=== PATIENT | female | born 1955 | race Two or more races ===

== ENCOUNTER 2018-05-17 11:42 | Emergency (ER) | payer SELFPAY ==
[~2018-05-17] VITALS: Ht 167.6 cm; Wt 59.4 kg
[2018-05-17] MEDS ORDERED: fentaNYL PF VIAL 100 MCG/2 ML VIAL IV ONE ×2 (12:00→15:30)
[2018-05-17] MEDS ORDERED: ONDANSETRON PF 4 MG/2 ML VIAL. IV ONE (12:00)
[2018-05-17] MEDS ORDERED: IV NORMAL SALINE 1000ML BAG 1,000 ML IV ONE (12:00)
[2018-05-17 12:24] LABS: BASO % 1 % (0-3); EOS # 0.2 x10^3/uL (0.0-0.7); EOS % 3 % (0-3); HEMATOCRIT 37.5 % (36.0-47.0); HEMOGLOBIN 12.7 g/dL (12.0-15.5); LYMPH # 1.4 x10^3/uL (1.0-4.8); LYMPH % 22 % (24-48); MEAN CORPUSCULAR HEMOGLOBIN 29 pg (25-35); MEAN CORPUSCULAR HGB CONC 34 g/dL (31-37); MEAN CORPUSCULAR VOLUME 85 fL (79-100); MONO # 0.2 x10^3/uL (0.0-1.1); MONO % 4 % (0-9); NEUT # 4.3 x10^3uL (1.8-7.7); NEUT % 70 % (31-73); PLATELET COUNT 296 x10^3/uL (140-400); RED BLOOD COUNT 4.39 x10^6/uL (3.50-5.40); RED CELL DISTRIBUTION WIDTH 13.4 % (11.5-14.5); WHITE BLOOD COUNT 6.1 x10^3/uL (4.0-11.0)
[2018-05-17 12:25] LABS: BILIRUBIN,URINE NEGATIVE (NEG); CLARITY,URINE CLEAR; COLOR,URINE YELLOW; NITRITE,URINE NEGATIVE (NEG); PROTEIN,URINE NEGATIVE (NEG-TRACE); UROBILINOGEN,URINE 0.2 mg/dL (0.2 mg/dL)
--- NOTE | 2018-05-17 12:40 | PHYS DOC ---
Past Medical History Past Medical History: No Pertinent History Past Surgical History: No Surgical History, Hysterectomy Alcohol Use: None Drug Use: None Adult General Chief Complaint Chief Complaint: FLANK PAIN HPI HPI Patient is a 62 year old F who presents with right sided back pain that radiates to right sided abdominal pain. Onset last night. She reports feeling chilled, but no fever. No n/v. She states she has urgency, but no dysuria. No hx of pain like this in the past. She reported to RN that she has been constipated as well. Review of Systems Review of Systems Constitutional: Denies fever or chills [] Respiratory: Denies cough or shortness of breath [] Cardiovascular: No additional information not addressed in HPI [] GI: Reports abdominal pain. Denies nausea, vomiting, or diarrhea [] : Reports urgency. Denies dysuria or hematuria [] Musculoskeletal: Reports right sided back pain Neurologic: Denies headache, focal weakness or sensory changes [] All other systems were reviewed and found to be within normal limits, except as documented in this note. Current Medications Current Medications Current Medications Medications (Trade) Dose Ordered Sig/Paulie Start Time Stop Time Status Last Admin Dose Admin Ceftriaxone Sodium 50 ml @ 100 mls/hr 1X ONCE 05/17/18 13:45 05/17/18 14:14 DC 05/17/18 13:38 100 MLS/HR Fentanyl Citrate (Fentanyl 2ml Vial) 50 mcg 1X ONCE 05/17/18 12:00 05/17/18 12:21 DC 05/17/18 12:23 50 MCG Ketorolac Tromethamine (Toradol 15mg Vial) 15 mg 1X ONCE 05/17/18 13:00 05/17/18 13:01 DC 05/17/18 13:03 15 MG Ondansetron HCl (Zofran) 4 mg 1X ONCE 05/17/18 12:00 05/17/18 12:21 DC 05/17/18 12:22 4 MG Sodium Chloride 1,000 ml @ 1,000 mls/hr 1X ONCE 05/17/18 12:00 05/17/18 12:59 DC 05/17/18 12:21 1,000 MLS/HR Allergies Allergies Allergies Coded Allergies Type Severity Reaction Last Updated Verified No Known Drug Allergies 05/17/18 No Physical Exam Physical Exam Constitutional: Well developed, well nourished, no acute distress, non-toxic appearance. [] HENT: Normocephalic, atraumatic Eyes: PERRLA, EOMI, conjunctiva normal, no discharge. [] Neck: Normal range of motion, no tenderness, supple, no stridor. [] Cardiovascular:Heart rate regular rhythm, no murmur [] Lungs & Thorax: Bilateral breath sounds clear to auscultation [] Abdomen: Bowel sounds normal, soft, right sided Skin: Warm, dry, no erythema, no rash. [] Extremities: No tenderness, ROM intact Neurologic: Alert and oriented X 3, normal motor function, normal sensory function, no focal deficits noted. [] Psychologic: Affect normal, judgement normal, mood normal. [] Current Patient Data Vital Signs Vital Signs Date Time Temp Pulse Resp B/P (MAP) Pulse Ox O2 Delivery O2 Flow Rate FiO2 05/17/18 13:53 72 16 130/70 (90) 100 Room Air 05/17/18 13:14 2.0 05/17/18 11:47 97.7 97.7 Lab Values Laboratory Tests Test 05/17/18 12:10 White Blood Count 6.1 x10^3/uL (4.0-11.0) Red Blood Count 4.39 x10^6/uL (3.50-5.40) Hemoglobin 12.7 g/dL (12.0-15.5) Hematocrit 37.5 % (36.0-47.0) Mean Corpuscular Volume 85 fL (79-100) Mean Corpuscular Hemoglobin 29 pg (25-35) Mean Corpuscular Hemoglobin Concent 34 g/dL (31-37) Red Cell Distribution Width 13.4 % (11.5-14.5) Platelet Count 296 x10^3/uL (140-400) Neutrophils (%) (Auto) 70 % (31-73) Lymphocytes (%) (Auto) 22 % (24-48) L Monocytes (%) (Auto) 4 % (0-9) Eosinophils (%) (Auto) 3 % (0-3) Basophils (%) (Auto) 1 % (0-3) Neutrophils # (Auto) 4.3 x10^3uL (1.8-7.7) Lymphocytes # (Auto) 1.4 x10^3/uL (1.0-4.8) Monocytes # (Auto) 0.2 x10^3/uL (0.0-1.1) Eosinophils # (Auto) 0.2 x10^3/uL (0.0-0.7) Basophils # (Auto) 0.0 x10^3/uL (0.0-0.2) Urine Collection Type Unknown Urine Color Yellow Urine Clarity Clear Urine pH 7.0 Urine Specific Gorman 1.010 Urine Protein Negative mg/dL (NEG-TRACE) Urine Glucose (UA) Negative mg/dL (NEG) Urine Ketones (Stick) Negative mg/dL (NEG) Urine Blood Small (NEG) Urine Nitrite Negative (NEG) Urine Bilirubin Negative (NEG) Urine Urobilinogen Dipstick 0.2 mg/dL (0.2 mg/dL) Urine Leukocyte Esterase Trace (NEG) Urine RBC Rare /HPF (0-2) Urine WBC Occ /HPF (0-4) Urine Squamous Epithelial Cells Few /LPF Urine Bacteria Few /HPF (0-FEW) Sodium Level 141 mmol/L (136-145) Potassium Level 3.8 mmol/L (3.5-5.1) Chloride Level 102 mmol/L (98-107) Carbon Dioxide Level 28 mmol/L (21-32) Anion Gap 11 (6-14) Blood Urea Nitrogen 11 mg/dL (7-20) Creatinine 0.8 mg/dL (0.6-1.0) Estimated GFR (Cockcroft-Gault) 73.2 BUN/Creatinine Ratio 14 (6-20) Glucose Level 125 mg/dL (70-99) H Calcium Level 9.2 mg/dL (8.5-10.1) Total Bilirubin 0.3 mg/dL (0.2-1.0) Aspartate Amino Transferase (AST) 31 U/L (15-37) Alanine Aminotransferase (ALT) 39 U/L (14-59) Alkaline Phosphatase 124 U/L (46-116) H Total Protein 8.4 g/dL (6.4-8.2) H Albumin 3.7 g/dL (3.4-5.0) Albumin/Globulin Ratio 0.8 (1.0-1.7) L Laboratory Tests 05/17/18 12:10 Laboratory Tests 05/17/18 12:10 EKG EKG [] Radiology/Procedures Radiology/Procedures PATIENT: RAMOS PRIETORAACCOUNT: [id number]#: [id number] : 1955 LOCATION: ER AGE: 62 SEX: F EXAM STATUS: REG ER ORD. PHYSICIAN: VIC BENOIT APRN REASON: right flank and abdominal pain PROCEDURE: CT ABDOMEN PELVIS WO CONTRAST EXAM: CT Abdomen and Pelvis without IV contrast CLINICAL HISTORY: R FLANK PAIN CONSTIPATION NO CONTRAST NO PREV SX: HYSTERECTOMY COMPARISON: none TECHNIQUE: Helical CT of the abdomen and pelvis without intravenous contrast. Axial, coronal and sagittal reformatted images were generated. PQRS compliance statement - One or more of the following individualized dose reduction techniques were utilized for this study: 1. Automated exposure control 2. Adjustment of the mA and/or kV according to patient size 3. Use of iterative reconstruction technique FINDINGS: Lack of intravenous contrast limits evaluation of solid organs, vasculature, and lymph nodes. Lower chest: Platelike opacities in the lung bases likely atelectasis/scarring. Right lower lobe calcified granulomas noted. Abdomen and Pelvis: No focal liver lesion. Gallbladder is unremarkable. No biliary ductal dilatation. Spleen is unremarkable. Adrenal glands and pancreas are unremarkable. Left lower pole cortical thinning/scarring is seen. Hypodense left lower pole renal lesion is not well characterized by CT, measures soft tissue density, 1.5 cm. A right lower pole renal cystic lesion measures 1.2 cm. No hydronephrosis or hydroureter. No renal tract calculi. Moderate colonic stool content is seen. Appendix is normal. No abnormal small or large bowel dilatation is seen. No evidence of bowel obstruction. Bladder is unremarkable. No definite pelvic mass is identified. Bones: Multilevel degenerative changes of the spine are seen. IMPRESSION: 1. Moderate colonic stool content. No evidence of bowel obstruction. 2. Hypodense left lower pole renal lesion is too small to characterize. This can be characterized by nonemergent ultrasound to assess for solid versus cystic lesion. 3. No renal tract calculi. Electronically signed by: Kristian Carter MD (05/17/2018 2:37 PM) [facility] DICTATED and SIGNED BY: KRISTIAN CARTER MD DATE: 05/17/18 1424 PATIENT: NII PRIETOACCOUNT: [id number]#: [id number] : 1955 LOCATION: ER AGE: 62 SEX: F EXAM STATUS: REG ER ORD. PHYSICIAN: VIC BENOIT APRN REASON: constipation, right abdominal pain PROCEDURE: KUB EXAM: Supine AP view of the abdomen DATE: 05/17/2018 12:30 PM INDICATION: CONSTIPATION, RIGHT SIDED ABDOMINAL PAIN COMPARISON: No Prior FINDINGS: No abnormal small or large bowel dilatation. Moderate colonic stool content. No abnormal soft tissue mass effect. No suspicious calcifications are seen. Evaluation for free intraperitoneal gas is limited on this supine exam. IMPRESSION: 1. No evidence for bowel obstruction. Electronically signed by: Kristian Carter MD (05/17/2018 12:47 PM) [facility] DICTATED and SIGNED BY: KRISTIAN CARTER MD DATE: 05/17/18 1246 [] Course & Med Decision Making Course & Med Decision Making Pertinent Labs and Imaging studies reviewed. (See chart for details) Plan: keflex rx, tramadol rx, mag citrate rx, f/u with PCP, return precautions reviewed Dragon Disclaimer Dragon Disclaimer This electronic medical record was generated, in whole or in part, using a voice recognition dictation system. Departure Departure Impression: Primary Impression: UTI (urinary tract infection) Additional Impressions: Constipation Abdominal pain Disposition: 01 HOME, SELF-CARE Condition: IMPROVED Patient Instructions: Constipation, Adult, Urinary Tract Infection Additional Instructions: Mix 4oz of magnesium citrate with 4oz of any beverage and drink every hour until results. Scripts Magnesium Citrate (MAGNESIUM CITRATE) 296 Ml Solution 296 ML PO ONCE, #296 ML Prov: VIC BENOIT APRN 05/17/18 Tramadol Hcl (TRAMADOL HCL) 50 Mg Tablet 50 MG PO Q6HRS PRN for PAIN, #20 TAB Prov: VIC BENOIT APRN 05/17/18 Cephalexin (CEPHALEXIN) 500 Mg Tablet 1 TAB PO TID, #15 TAB Prov: VIC BENOIT APRN 05/17/18 Problem Qualifiers Primary Impression: UTI (urinary tract infection) Urinary tract infection type: acute cystitis Hematuria presence: without hematuria Qualified Codes: N30.00 - Acute cystitis without hematuria Additional Impressions: Constipation Constipation type: unspecified constipation type Qualified Codes: K59.00 - Constipation, unspecified Abdominal pain Abdominal location: right lower quadrant Qualified Codes: R10.31 - Right lower quadrant pain VIC BENOIT APRN May 17, 2018 12:40
[2018-05-17 12:41] LABS: BACTERIA,URINE FEW /HPF (0-FEW); RBC,URINE RARE /HPF (0-2); SQUAMOUS EPITHELIAL CELL,UR FEW /LPF; WBC,URINE OCC /HPF (0-4)
[2018-05-17 12:45] LABS: CALCIUM 9.2 mg/dL (8.5-10.1); CREATININE 0.8 mg/dL (0.6-1.0); GFR 73.2; POTASSIUM 3.8 mmol/L (3.5-5.1)
[2018-05-17 12:51] LABS: ALBUMIN 3.7 g/dL (3.4-5.0); ALBUMIN/GLOBULIN RATIO 0.8 (1.0-1.7); TOTAL BILIRUBIN 0.3 mg/dL (0.2-1.0); TOTAL PROTEIN 8.4 g/dL (6.4-8.2)
--- NOTE | 2018-05-17 12:51 | RAD ---
EXAM: Supine AP view of the abdomen DATE: 05/17/2018 12:30 PM INDICATION: CONSTIPATION, RIGHT SIDED ABDOMINAL PAIN COMPARISON: No Prior FINDINGS: No abnormal small or large bowel dilatation. Moderate colonic stool content. No abnormal soft tissue mass effect. No suspicious calcifications are seen. Evaluation for free intraperitoneal gas is limited on this supine exam. IMPRESSION: 1. No evidence for bowel obstruction. Electronically signed by: Kristian Carter MD (05/17/2018 12:47 PM) [facility]
[2018-05-17] MEDS ORDERED: KETOROLAC 15 MG/ML VIAL. IV ONE ×2 (13:00→16:30)
--- NOTE | 2018-05-17 14:41 | RAD ---
EXAM: CT Abdomen and Pelvis without IV contrast CLINICAL HISTORY: R FLANK PAIN CONSTIPATION NO CONTRAST NO PREV SX: HYSTERECTOMY COMPARISON: none TECHNIQUE: Helical CT of the abdomen and pelvis without intravenous contrast. Axial, coronal and sagittal reformatted images were generated. PQRS compliance statement - One or more of the following individualized dose reduction techniques were utilized for this study: 1. Automated exposure control 2. Adjustment of the mA and/or kV according to patient size 3. Use of iterative reconstruction technique FINDINGS: Lack of intravenous contrast limits evaluation of solid organs, vasculature, and lymph nodes. Lower chest: Platelike opacities in the lung bases likely atelectasis/scarring. Right lower lobe calcified granulomas noted. Abdomen and Pelvis: No focal liver lesion. Gallbladder is unremarkable. No biliary ductal dilatation. Spleen is unremarkable. Adrenal glands and pancreas are unremarkable. Left lower pole cortical thinning/scarring is seen. Hypodense left lower pole renal lesion is not well characterized by CT, measures soft tissue density, 1.5 cm. A right lower pole renal cystic lesion measures 1.2 cm. No hydronephrosis or hydroureter. No renal tract calculi. Moderate colonic stool content is seen. Appendix is normal. No abnormal small or large bowel dilatation is seen. No evidence of bowel obstruction. Bladder is unremarkable. No definite pelvic mass is identified. Bones: Multilevel degenerative changes of the spine are seen. IMPRESSION: 1. Moderate colonic stool content. No evidence of bowel obstruction. 2. Hypodense left lower pole renal lesion is too small to characterize. This can be characterized by nonemergent ultrasound to assess for solid versus cystic lesion. 3. No renal tract calculi. Electronically signed by: Kristian Carter MD (05/17/2018 2:37 PM) [facility]
[2018-05-17] MEDS ORDERED: CEPH500T PO (15:24)
[2018-05-17] MEDS ORDERED: TRAM50TA PO (15:24)
[2018-05-17] MEDS ORDERED: MAGN296S9 PO (15:24)
[2018-05-17 16:14] VITALS: BP 123/60
== END 2018-05-17 16:29 | disposition home or self-care (01) ==
LOC: ER 11:42
DX: N30.00 Acute cystitis without hematuria (principal); K59.00 Constipation, unspecified; M54.9 Dorsalgia, unspecified; Z90.710 Acquired absence of both cervix and uterus
CPT/HCPCS: 36415; 74018; 74176; 80053; 81001; 85025; 87086; 96365; 96375; 96376; 99285; J0690; J1885; J2405; J3010; J7030

== ENCOUNTER 2020-01-14 10:07 | Emergency (ER) | payer SELFPAY ==
[~2020-01-14] VITALS: Ht 152.4 cm; Wt 59.0 kg
[~2020-01-14 10:07] MED LIST: CEPH500T PO; MAGN296S68 PO; TRAM50TA PO
[2020-01-14] MEDS ORDERED: ONDANSETRON PF 4 MG/2 ML VIAL. IV ONE (10:45)
[2020-01-14] MEDS ORDERED: KETOROLAC 30 MG/ML VIAL. IV ONE (10:45)
[2020-01-14] MEDS ORDERED: IV NORMAL SALINE 1000ML BAG 1,000 ML IV ONE (10:45)
[2020-01-14 10:47] LABS: BASO % 1 % (0-3); EOS # 0.2 x10^3/uL (0.0-0.7); EOS % 4 % (0-3); HEMATOCRIT 41.6 % (36.0-47.0); HEMOGLOBIN 13.6 g/dL (12.0-15.5); LYMPH # 1.4 x10^3/uL (1.0-4.8); LYMPH % 25 % (24-48); MEAN CORPUSCULAR HEMOGLOBIN 29 pg (25-35); MEAN CORPUSCULAR HGB CONC 33 g/dL (31-37); MEAN CORPUSCULAR VOLUME 88 fL (79-100); MONO # 0.4 x10^3/uL (0.0-1.1); MONO % 7 % (0-9); NEUT # 3.5 x10^3/uL (1.8-7.7); NEUT % 64 % (31-73); PLATELET COUNT 336 x10^3/uL (140-400); RED BLOOD COUNT 4.72 x10^6/uL (3.50-5.40); RED CELL DISTRIBUTION WIDTH 13.7 % (11.5-14.5); WHITE BLOOD COUNT 5.5 x10^3/uL (4.0-11.0)
[2020-01-14 10:50] LABS: BILIRUBIN,URINE NEGATIVE (NEG); CLARITY,URINE CLEAR; COLOR,URINE YELLOW; NITRITE,URINE NEGATIVE (NEG); PH,URINE 7.5 (<5.0-8.0); PROTEIN,URINE NEGATIVE (NEG-TRACE); UROBILINOGEN,URINE 0.2 mg/dL (0.2 mg/dL)
[2020-01-14 11:00] LABS: CALCIUM 8.9 mg/dL (8.5-10.1); CREATININE 0.8 mg/dL (0.6-1.0); GFR 72.7; POTASSIUM 3.7 mmol/L (3.5-5.1)
[2020-01-14 11:06] LABS: SQUAMOUS EPITHELIAL CELL,UR MOD /LPF
[2020-01-14 11:06] LABS: ALBUMIN 4.1 g/dL (3.4-5.0); ALBUMIN/GLOBULIN RATIO 0.9 (1.0-1.7); TOTAL BILIRUBIN 0.4 mg/dL (0.2-1.0); TOTAL PROTEIN 8.8 g/dL (6.4-8.2)
[2020-01-14 11:07] LABS: BACTERIA,URINE 0 /HPF (0-FEW); RBC,URINE OCC /HPF (0-2); WBC,URINE OCC /HPF (0-4)
--- NOTE | 2020-01-14 12:25 | RAD ---
CT ABDOMEN PELVIS WO CONTRAST Indication: Bilateral flank pain for one month. Exposure: One or more of the following individualized dose reduction techniques were utilized for this examination: 1. Automated exposure control 2. Adjustment of the mA and/or kV according to patient size 3. Use of iterative reconstruction technique. Comparison: 05/17/2018 Technique: No intravenous contrast given. No oral contrast per request. Findings: Evaluation of solid viscera, bowel and vasculature is compromised by the noncontrast technique. Right lung base pulmonary nodules are again identified, stable since prior exam with some calcified component. Mild atelectasis in both visible lung bases. The liver appears unremarkable. Spleen unremarkable. Pancreas unremarkable. No evidence of adrenal mass. Hypodense lesion identified at the lower pole of the right kidney, with subtle margins but measuring about 15 mm diameter. No definite change since the prior exam. This measures 6 Hounsfield units, suggesting cystic nature. The fat planes superficial to the lesion appear intact. There is some irregularity of the lower pole the left kidney, likely due to scarring, similar to the prior exam. No evidence of hydronephrosis or ureteric dilatation. Tiny calcification in the region of the right ureterovesical junction, appears to be extra ureteric and is unchanged from prior study, compatible with a phlebolith. No definite urinary tract calculus is identified. There is some focal stranding in the fat surrounding the distal left ureter, similar to the previous exam, may represent some focal scarring or fibrosis. The gallbladder demonstrates no evidence of calcified stone. The aorta is calcified without evidence of an aneurysm. No evidence of pathologic lymph node enlargement. The stomach is distended with food material. No significant small bowel distention. Mild colonic diverticulosis. A structure which probably represents normal appendix is visualized. No evidence to suggest acute colitis. No evidence of pneumoperitoneum. No evidence of significant ascites. No significant urinary bladder wall thickening. No evidence of pelvic mass. Degenerative spondylosis of the spine. Vertebral body height maintained. Lumbar stenosis, similar to the prior study. No evidence of aggressive bone destruction or acute fracture. IMPRESSION: 1. Right lower pole renal lesion is again seen, and appears roughly similar to the previous exam. This may represent a renal cyst, could further evaluate with outpatient renal ultrasound, if not already performed. 2. No evidence of urinary tract calculus or obstruction. Electronically signed by: Darryl Daniels MD (01/14/2020 12:22 PM) [id number]
[2020-01-14 12:30] VITALS: BP 109/59
--- NOTE | 2020-01-14 12:33 | PHYS DOC ---
Past Medical History Past Medical History: No Pertinent History Past Surgical History: No Surgical History, Hysterectomy Smoking Status: Never Smoker Alcohol Use: None Drug Use: None General Adult EDM: Chief Complaint: FLANK PAIN HPI: HPI: Patient is a 64-year-old female who presents with a 1 year history of lower abdominal and flank pain. She denies any dysuria or gross hematuria. Has not had any fever chills or sweats. She denies any nausea vomiting or diarrhea. She denies any melena or hematochezia. She states the pain really did intensify this morning. She has seen a primary care physician for this and been scheduled for an outpatient colonoscopy but she did not do it because she says she just could not afford it. [] Review of Systems: Review of Systems: Constitutional: Denies fever or chills. [] Eyes: Denies change in visual acuity. [] HENT: Denies nasal congestion or sore throat. [] Respiratory: Denies cough or shortness of breath. [] Cardiovascular: Denies chest pain or edema. [] GI: Denies abdominal pain, nausea, vomiting, bloody stools or diarrhea. [] : Denies dysuria. [] Musculoskeletal: Denies back pain or joint pain. [] Integument: Denies rash. [] Neurologic: Denies headache, focal weakness or sensory changes. [] Endocrine: Denies polyuria or polydipsia. [] Lymphatic: Denies swollen glands. [] Psychiatric: Anxious [] Heart Score: Risk Factors: Risk Factors: DM, Current or recent (<one month) smoker, HTN, HLP, family history of CAD, obesity. Risk Scores: Score 0 - 3: 2.5% MACE over next 6 weeks - Discharge Home Score 4 - 6: 20.3% MACE over next 6 weeks - Admit for Clinical Observation Score 7 - 10: 72.7% MACE over next 6 weeks - Early Invasive Strategies Current Medications: Current Medications Medications (Trade) Dose Ordered Sig/Paulie Start Time Stop Time Status Last Admin Dose Admin Ketorolac Tromethamine (Toradol 30mg Vial) 30 mg 1X ONCE 01/14/20 10:45 01/14/20 10:46 DC 01/14/20 11:04 30 MG Ondansetron HCl (Zofran) 4 mg 1X ONCE 01/14/20 10:45 01/14/20 10:46 DC 01/14/20 11:04 4 MG Sodium Chloride 1,000 ml @ 1,000 mls/hr 1X ONCE 01/14/20 10:45 01/14/20 11:44 DC 01/14/20 11:04 1,000 MLS/HR Allergies: Allergies: Allergies Coded Allergies Type Severity Reaction Last Updated Verified No Known Drug Allergies 05/17/18 No Physical Exam: PE: Constitutional: Well developed, well nourished, mild to moderate distress, non- toxic appearance. [] HENT: Normocephalic, atraumatic, bilateral external ears normal, oropharynx moist, no oral exudates, nose normal. [] Eyes: PERRLA, EOMI, conjunctiva normal, no discharge. [] Neck: Normal range of motion, no tenderness, supple, no stridor. [] Cardiovascular:Heart rate regular rhythm, no murmur [] Lungs & Thorax: Bilateral breath sounds clear to auscultation [] Abdomen: Bowel sounds normal, soft, no tenderness, no masses, no pulsatile masses. [] Skin: Warm, dry, no erythema, no rash. [] Back: No tenderness, no CVA tenderness. [] Extremities: No tenderness, no cyanosis, no clubbing, ROM intact, no edema. [] Neurologic: Alert and oriented X 3, normal motor function, normal sensory function, no focal deficits noted. [] Psychologic: Anxious. [] Current Patient Data: Labs: Laboratory Tests Test 01/14/20 10:25 01/14/20 10:30 White Blood Count 5.5 x10^3/uL (4.0-11.0) Red Blood Count 4.72 x10^6/uL (3.50-5.40) Hemoglobin 13.6 g/dL (12.0-15.5) Hematocrit 41.6 % (36.0-47.0) Mean Corpuscular Volume 88 fL (79-100) Mean Corpuscular Hemoglobin 29 pg (25-35) Mean Corpuscular Hemoglobin Concent 33 g/dL (31-37) Red Cell Distribution Width 13.7 % (11.5-14.5) Platelet Count 336 x10^3/uL (140-400) Neutrophils (%) (Auto) 64 % (31-73) Lymphocytes (%) (Auto) 25 % (24-48) Monocytes (%) (Auto) 7 % (0-9) Eosinophils (%) (Auto) 4 % (0-3) H Basophils (%) (Auto) 1 % (0-3) Neutrophils # (Auto) 3.5 x10^3/uL (1.8-7.7) Lymphocytes # (Auto) 1.4 x10^3/uL (1.0-4.8) Monocytes # (Auto) 0.4 x10^3/uL (0.0-1.1) Eosinophils # (Auto) 0.2 x10^3/uL (0.0-0.7) Basophils # (Auto) 0.0 x10^3/uL (0.0-0.2) Sodium Level 141 mmol/L (136-145) Potassium Level 3.7 mmol/L (3.5-5.1) Chloride Level 102 mmol/L (98-107) Carbon Dioxide Level 32 mmol/L (21-32) Anion Gap 7 (6-14) Blood Urea Nitrogen 12 mg/dL (7-20) Creatinine 0.8 mg/dL (0.6-1.0) Estimated GFR (Cockcroft-Gault) 72.7 BUN/Creatinine Ratio 15 (6-20) Glucose Level 81 mg/dL (70-99) Calcium Level 8.9 mg/dL (8.5-10.1) Total Bilirubin 0.4 mg/dL (0.2-1.0) Aspartate Amino Transferase (AST) 34 U/L (15-37) Alanine Aminotransferase (ALT) 46 U/L (14-59) Alkaline Phosphatase 115 U/L (46-116) Total Protein 8.8 g/dL (6.4-8.2) H Albumin 4.1 g/dL (3.4-5.0) Albumin/Globulin Ratio 0.9 (1.0-1.7) L Urine Collection Type Unknown Urine Color Yellow Urine Clarity Clear Urine pH 7.5 (<5.0-8.0) Urine Specific Eliot 1.010 (1.000-1.030) Urine Protein Negative mg/dL (NEG-TRACE) Urine Glucose (UA) Negative mg/dL (NEG) Urine Ketones (Stick) Negative mg/dL (NEG) Urine Blood Negative (NEG) Urine Nitrite Negative (NEG) Urine Bilirubin Negative (NEG) Urine Urobilinogen Dipstick 0.2 mg/dL (0.2 mg/dL) Urine Leukocyte Esterase Negative (NEG) Urine RBC Occ /HPF (0-2) Urine WBC Occ /HPF (0-4) Urine Squamous Epithelial Cells Mod /LPF Urine Bacteria 0 /HPF (0-FEW) Laboratory Tests 01/14/20 10:25 Laboratory Tests 01/14/20 10:25 Vital Signs: Vital Signs Date Time Temp Pulse Resp B/P (MAP) Pulse Ox O2 Delivery O2 Flow Rate FiO2 01/14/20 10:32 98.5 79 16 140/67 (91) 97 Room Air 98.5 EKG: EKG: [] Radiology/Procedures: Radiology/Procedures: [] Impression: CT ABDOMEN PELVIS WO CONTRAST Indication: Bilateral flank pain for one month. Exposure: One or more of the following individualized dose reduction techniques were utilized for this examination: 1. Automated exposure control 2. Adjustment of the mA and/or kV according to patient size 3. Use of iterative reconstruction technique. Comparison: 05/17/2018 Technique: No intravenous contrast given. No oral contrast per request. Findings: Evaluation of solid viscera, bowel and vasculature is compromised by the noncontrast technique. Right lung base pulmonary nodules are again identified, stable since prior exam with some calcified component. Mild atelectasis in both visible lung bases. The liver appears unremarkable. Spleen unremarkable. Pancreas unremarkable. No evidence of adrenal mass. Hypodense lesion identified at the lower pole of the right kidney, with subtle margins but measuring about 15 mm diameter. No definite change since the prior exam. This measures 6 Hounsfield units, suggesting cystic nature. The fat planes superficial to the lesion appear intact. There is some irregularity of the lower pole the left kidney, likely due to scarring, similar to the prior exam. No evidence of hydronephrosis or ureteric dilatation. Tiny calcification in the region of the right ureterovesical junction, appears to be extra ureteric and is unchanged from prior study, compatible with a phlebolith. No definite urinary tract calculus is identified. There is some focal stranding in the fat surrounding the distal left ureter, similar to the previous exam, may represent some focal scarring or fibrosis. The gallbladder demonstrates no evidence of calcified stone. The aorta is calcified without evidence of an aneurysm. No evidence of pathologic lymph node enlargement. The stomach is distended with food material. No significant small bowel distention. Mild colonic diverticulosis. A structure which probably represents normal appendix is visualized. No evidence to suggest acute colitis. No evidence of pneumoperitoneum. No evidence of significant ascites. No significant urinary bladder wall thickening. No evidence of pelvic mass. Degenerative spondylosis of the spine. Vertebral body height maintained. Lumbar stenosis, similar to the prior study. No evidence of aggressive bone destruction or acute fracture. IMPRESSION: 1. Right lower pole renal lesion is again seen, and appears roughly similar to the previous exam. This may represent a renal cyst, could further evaluate with outpatient renal ultrasound, if not already performed. 2. No evidence of urinary tract calculus or obstruction. Course & Med Decision Making: Course & Med Decision Making Pertinent Labs and Imaging studies reviewed. (See chart for details) [ED course: Evaluation reveals a 64-year-old female that is in no particular distress. Have encouraged her to follow with primary care physician as soon as possible. I communicated this to her through the division roadmaster line.] Huy Disclaimer: Huy Disclaimer: This electronic medical record was generated, in whole or in part, using a voice recognition dictation system. Departure Departure Impression: Primary Impression: Abdominal pain Qualified Codes: R10.84 - Generalized abdominal pain Disposition: HOME, SELF-CARE Condition: STABLE Referrals: NO PCP (PCP) Patient Instructions: Abdominal Pain Scripts Dicyclomine Hcl (DICYCLOMINE HCL) 20 Mg Tablet 1 TAB PO TID, #30 TAB 1 Refill Prov: SOFIA GHOTRA DO 01/14/20 SOFIA GHOTRA DO January 14, 2020 12:33
[2020-01-14] MEDS ORDERED: DICY20TA3 PO (12:45)
== END 2020-01-14 13:07 | disposition home or self-care (01) ==
LOC: ER 10:07
DX: R10.84 Generalized abdominal pain (principal); F41.9 Anxiety disorder, unspecified; Z90.710 Acquired absence of both cervix and uterus
CPT/HCPCS: 36415; 74176; 80053; 81001; 85025; 96374; 96375; 99284; J1885; J2405; J7030

== ENCOUNTER 2021-06-07 12:22 | Emergency (ER) | payer SELFPAY ==
[~2021-06-07] VITALS: Ht 152.4 cm; Wt 59.0 kg
[~2021-06-07 12:22] MED LIST changes: +DICY20TA3 PO
--- NOTE | 2021-06-07 13:07 | RAD ---
Three-view acute abdominal series. HISTORY: Constipation 3 views were taken for an acute abdominal series. Lungs are clear. Heart is normal in size. There is no effusion. There is no free air on the upright view. There are no abnormal air-fluid levels. There is no small bowel obstruction. There is moderate stool in the colon and rectum. There is mild degener ative facet arthritis in the lower lumbar spine. IMPRESSION: 1. No acute chest disease. 2. Moderate stool in colon. 3. No bowel obstruction or other acute finding. Electronically signed by: Conrad Ackerman MD (06/07/2021 1:04 PM) [facility]
[2021-06-07 13:09] VITALS: BP 110/61
[2021-06-07] MEDS ORDERED: BISACODYL 5 MG TABLET.DR. PO STA (13:10)
[2021-06-07] MEDS ORDERED: MAGNESIUM CITRATE 296 ML SOLUTION. PO ONE (13:15)
[2021-06-07] MEDS ORDERED: ONDANSETRON ODT 4 MG TAB.RAPDIS. PO ONE (13:15)
[2021-06-07] MEDS ORDERED: MAGN296S68 PO (13:33)
[2021-06-07] MEDS ORDERED: POLY119P4 PO (13:33)
--- NOTE | 2021-06-07 13:34 | PHYS DOC ---
Past Medical History Past Medical History: No Pertinent History Past Surgical History: No Surgical History, Hysterectomy Smoking Status: Never Smoker Alcohol Use: None Drug Use: None General Adult EDM: Chief Complaint: CONTISPATION HPI: HPI: Patient is a 65 year old female who presents to the ED today complaining of constipation with mild intermittent left-sided abdominal pain, symptoms of been going on for 7 days. Patient states this morning she vomited. Denies any chest pain or shortness of breath. Reports last bowel movement was 7 days ago. States the only medicine she takes is a multivitamin. Historian was patient using sister as interventional tech Review of Systems: Review of Systems: Constitutional: Denies fever or chills. [] Eyes: Denies change in visual acuity. [] HENT: Denies nasal congestion or sore throat. [] Respiratory: Denies cough or shortness of breath. [] Cardiovascular: Denies chest pain or edema. [] GI: Reports constipation and vomiting, denies bloody stools or diarrhea. [] : Denies dysuria. [] Musculoskeletal: Denies back pain or joint pain. [] Integument: Denies rash. [] Neurologic: Denies headache, focal weakness or sensory changes. [] Psychiatric: Denies depression or anxiety. [] Heart Score: C/O Chest Pain: N/A Risk Factors: Risk Factors: DM, Current or recent (<one month) smoker, HTN, HLP, family history of CAD, obesity. Risk Scores: Score 0 - 3: 2.5% MACE over next 6 weeks - Discharge Home Score 4 - 6: 20.3% MACE over next 6 weeks - Admit for Clinical Observation Score 7 - 10: 72.7% MACE over next 6 weeks - Early Invasive Strategies Current Medications: Current Medications Medications (Trade) Dose Ordered Sig/Paulie Start Time Stop Time Status Last Admin Dose Admin Bisacodyl (Dulcolax Tab) 10 mg 1X STAT 06/07/21 13:10 06/07/21 13:13 DC 06/07/21 13:20 10 MG Magnesium Citrate (Citroma) 296 ml 1X ONCE 06/07/21 13:15 06/07/21 13:16 DC Ondansetron HCl (Zofran Odt) 4 mg 1X ONCE 06/07/21 13:15 06/07/21 13:16 DC 06/07/21 13:18 4 MG Allergies: Allergies: Allergies Coded Allergies Type Severity Reaction Last Updated Verified No Known Drug Allergies 05/17/18 No Physical Exam: PE: Constitutional: Well developed, well nourished, no acute distress, non-toxic appearance. [] HENT: Normocephalic, atraumatic, bilateral external ears normal, oropharynx moist, no oral exudates, nose normal. [] Eyes: PERRLA, EOMI, conjunctiva normal, no discharge. [] Neck: Normal range of motion, no tenderness, supple, no stridor. [] Cardiovascular:Heart rate regular rhythm, no murmur [] Lungs & Thorax: Bilateral breath sounds clear to auscultation [] Abdomen: Bowel sounds normal, soft, no tenderness, no masses, no pulsatile masses. [] Skin: Warm, dry, no erythema, no rash. [] Back: No tenderness, no CVA tenderness. [] Extremities: No tenderness, no cyanosis, no clubbing, ROM intact, no edema. [] Neurologic: Alert and oriented X 3, normal motor function, normal sensory function, no focal deficits noted. [] Psychologic: Affect normal, judgement normal, mood normal. [] Current Patient Data: Vital Signs: Vital Signs Date Time Temp Pulse Resp B/P (MAP) Pulse Ox O2 Delivery O2 Flow Rate FiO2 06/07/21 12:45 98.6 66 16 134/69 (90) 99 Room Air 98.6 EKG: EKG: [] Radiology/Procedures: Radiology/Procedures: []PROCEDURE: ACUTE ABDOMEN SERIES Three-view acute abdominal series. HISTORY: Constipation 3 views were taken for an acute abdominal series. Lungs are clear. Heart is normal in size. There is no effusion. There is no free air on the upright view. There are no abnormal air-fluid levels. There is no small bowel obstruction. There is moderate stool in the colon and rectum. There is mild degenerative facet arthritis in the lower lumbar spine. IMPRESSION: 1. No acute chest disease. 2. Moderate stool in colon. 3. No bowel obstruction or other acute finding. Electronically signed by: Conrad Holman MD (06/07/2021 1:04 PM) [facility] DICTATED and SIGNED BY: CONRAD HOLMAN MD DATE: 06/07/21 [id number] 0 Course & Med Decision Making: Course & Med Decision Making Pertinent Labs and Imaging studies reviewed. (See chart for details) This is a 65-year-old female patient presenting to the ED today with constipation. Abdomen supine and upright x-rays noted for moderate amount of stool in the colon. Educated patient on constipation, prevention and management. Provided follow-up information. Given Dulcolax and mag citrate in the ED. Dragon Disclaimer: Dragon Disclaimer: This electronic medical record was generated, in whole or in part, using a voice recognition dictation system. Departure Departure Impression: Primary Impression: Constipation Qualified Codes: K59.00 - Constipation, unspecified Disposition: HOME / SELF CARE / HOMELESS Condition: STABLE Referrals: NO PCP (PCP) ASHLEY ROTHMAN MD follow up in one week Patient Instructions: Constipation, Adult, [id number] Additional Instructions: You were evaluated in the emergency room and noted to be constipated. We encourage you to increase your dietary fiber intake, increase your water intake, take MiraLAX every day. Please take mag citrate daily for the next 3 days. Consider doing an enema tonight if you do not have a bowel movement by the time you go to bed please follow-up with your primary care doctor or the provided fitness/wellness director in 1 week. Scripts Magnesium Citrate (MAGNESIUM CITRATE) 296 Ml Solution 296 ML PO ONCE, #296 ML Prov: ETELVINA BORDEN APRN 06/07/21 Polyethylene Glycol 3350 (MIRALAX) 119 Gm Powder 17 GM PO DAILY for constipation, #255 GM 0 Refills dissolve in water Prov: ETELVINA BORDEN APRN 06/07/21 ETELVINA BORDEN APRN Jun 07, 2021 13:34
== END 2021-06-07 13:43 | disposition home or self-care (01) ==
LOC: ER 12:22
DX: K59.00 Constipation, unspecified (principal)
CPT/HCPCS: 74022; 99284